=== PATIENT | female | born 1960 ===

== ENCOUNTER 2016-11-23 07:35 | Emergency (ER) | payer BC, OTHER ==
[2016-11-23] MEDS ORDERED: HYDROcodone/ACETAMIN 5-325 MG* 1 TAB PO ONE (08:06)
--- NOTE | 2016-11-23 08:54 | RAD ---
INDICATION: Right arm radiculopathy COMPARISON: None. TECHNIQUE: 5 views of the cervical spine were obtained. FINDINGS: C1-C7 are visualized. The vertebra are in normal alignment. No prevertebral soft tissue swelling or fracture is seen. Degenerative changes of the cervical spine include loss of intervertebral disc height at C5/C6 where there is mild to moderate marginal osteophyte formation. At the same levels on the oblique view images there is bony proliferation overlying the right greater than left neural foramina. IMPRESSION: Degenerative changes of the cervical spine most severely affecting C5/C6. If the patient's symptoms persist, follow-up imaging is recommended.
--- NOTE | 2016-11-23 08:55 | RAD ---
INDICATION: Atraumatic right elbow pain COMPARISON: None. TECHNIQUE: 4 views right elbow. REPORT: The visualized bones of the right elbow are well corticated and properly aligned. There is no radiographically apparent fracture or dislocation. There is no radiographic evidence of pathologic joint effusion. IMPRESSION: Normal radiograph of the right elbow. If the patient's symptoms persist further follow-up imaging is recommended.
--- NOTE | 2016-11-23 15:15 | UC ---
Moshe Serrano Alfonso, scribed for Manuela Lopez MD on 11/23/16 at 0758 . Upper Extremity HPI - HPI Summary HPI Summary: This patient is a 55 year old F presenting to [facility] with a chief complaint of right arm pain which began during sleep last night. She states the pain began in her right elbow pain, radiating up and down her right arm. The CC is described as burning. The patient rates the pain 9/10 in severity. Symptoms aggravated by movement. Symptoms alleviated by elevation of arm. Patient reports sore back (few days), weakness in right hand, and decreased ROM in right hand. Patient denies known injury, neck pain, and left arm pain. 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 She reports not taking any anti-inflammatory medication. PMHx of depression. Patients medications reviewed this visit. Patients allergies reviewed this visit. - History of Current Complaint Chief Complaint: UCUpperExtremity Stated Complaint: ARM PAIN Time Seen by Provider: 11/23/16 07:45 Hx Obtained From: Patient Hx Last Menstrual Period: does not get Onset/Duration: Sudden Onset, Lasting Hours - last night, Still Present Severity Initially: Severe Severity Currently: Severe Pain Intensity: 9 Pain Scale Used: 0-10 Numeric Location Of Pain: Is Discrete @ - right arm. Aggravating Factor(s): Movement Alleviating Factor(s): Elevation Associated Signs And Symptoms: Positive: Other - Patient reports sore back (few days), weakness in right hand, and decreased ROM in right hand. Patient denies known injury, neck pain, and left arm pain. - Allergies/Home Medications Allergies/Adverse Reactions: Allergies Allergy/AdvReac Type Severity Reaction Status Date / Time No Known Allergies Allergy Verified 11/23/16 07:47 Home Medications: Home Medications Escitalopram (NF) [Lexapro 10 mg (NF)] 11/23/16 [History] PMH/Surg Hx/FS Hx/Imm Hx Previously Healthy: Yes - see hpi Psychological History: Depression - Surgical History Surgical History: Yes Surgery Procedure, Year, and Place: breast tumor removed - Family History Known Family History: Positive: Cardiac Disease, Diabetes - Social History Alcohol Use: Daily Substance Use Type: Marijuana Smoking Status (MU): Heavy Every Day Tobacco Smoker Type: Cigarettes Amount Used/How Often: 1 ppd Review of Systems Skin: Negative Eyes: Negative ENT: Negative Respiratory: Negative Cardiovascular: Negative Gastrointestinal: Negative Genitourinary: Negative Motor: Decreased ROM Neurovascular: Other - see hpi Musculoskeletal: Arthralgia, Other: - Positive right arm pain, sore back weakness in right hand, and decreased ROM in right hand; negative known injury, neck pain, and left arm pain. Neurological: Negative Psychological: Negative All Other Systems Reviewed And Are Negative: Yes Physical Exam Triage Information Reviewed: Yes Appearance: Well-Nourished Vital Signs: Initial Vital Signs Temp 97.7 F 11/23/16 07:42 Pulse 83 11/23/16 07:42 Resp 18 11/23/16 07:42 BP 122/78 11/23/16 07:42 Pulse Ox 99 11/23/16 07:42 Vital Signs Reviewed: Yes Eye Exam: Normal ENT Exam: Normal Neck exam: Normal Neck: Positive: No Lymphadenopathy Respiratory Exam: Normal Respiratory: Positive: Other: - no dyspnea, no tachypnea, normal respiratory rate Cardiovascular: Positive: RRR, Other: - good general skin color, good capillary refill Abdomen Description: Positive: Nontender, No Organomegaly, Soft Bowel Sounds: Positive: Present Musculoskeletal Exam: Other - R elbow discomfort at radial groove. + distal sens LT and + ax N sens LT. "ok" thumb and 5th digit. CR< 2 sec x 5. R/U pp good. FROM R shoulder. From R elbow but very painful lat movement and wrist extension Neck w/o point tenderness, but mild lat spasm. Feels better with neck "hunched over" Neurological Exam: Normal Neurological: Positive: Other: - nonfocal, grossly intact Psychological: Positive: Age Appropriate Behavior Skin Exam: Normal Diagnostics - Radiology Elbow XRay Radiology Interpretation Completed By: Radiologist - Normal radiograph of the right elbow. If the patient's symptoms persist further follow-up imaging is recommended. ED physician has reviewed this radiology report and agrees. C-Spine XRay Radiology Interpretation Completed By: Radiologist - Degenerative changes of the cervical spine most severely affecting C5/C6. If the patient's symptoms persist, follow-up imaging is recommended. ED physician has reviewed this radiology report and agrees. Upper Extremity Course/Dx - Course Course Of Treatment: 08:52 - xrays pending. This patient is a 55 year old F presenting to [facility] with a chief complaint of right arm pain which began during sleep last night. She states the pain began in her right elbow pain, radiating up and down her right arm. The CC is described as burning. The patient rates the pain 9/10 in severity. Symptoms aggravated by movement. Symptoms alleviated by elevation of arm. Patient reports sore back (few days), weakness in right hand, and decreased ROM in right hand. Patient denies known injury, neck pain, and left arm pain. 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 She reports not taking any anti-inflammatory medication. PMHx of depression. Patients medications reviewed this visit. Patients allergies reviewed this visit. Feed[employer]fm reference number [id number]. Elbow X-Ray reveals Normal radiograph of the right elbow. If the patient's symptoms persist further follow-up imaging is recommended. ED physician has reviewed this radiology report and agrees. C-Spine X-Ray reveals Degenerative changes of the cervical spine most severely affecting C5/C6. If the patient's symptoms persist, follow- up imaging is recommended. ED physician has reviewed this radiology report and agrees. In the [facility] course the patient was given Snyder (Istop consulted, "Narc conversation") and a sling. Patient will be discharged with follow up from PCP. The patient is agreeable with this plan. - Differential Dx/Diagnosis Differential Diagnosis/HQI/PQRI: Fracture (Open) Provider Diagnoses: Osteoarthritis. Lat epicondylitis R arm Discharge - Discharge Plan Condition: Stable Disposition: HOME Prescriptions: HYDROcodone/ACETAMIN 5-325 MG* [Snyder 5-325 TAB*] 1 tab PO Q6H PRN #20 tab MDD 6 PRN Reason: Pain Naproxen [Naproxen 500 mg] 500 mg PO Q12H PRN #30 tab PRN Reason: Pain Patient Education Materials: Tennis Elbow (ED), Osteoarthritis (ED) Forms: *Work Release Referrals: David Gamez MD [Medical Doctor] - 3 Days Additional Instructions: Follow up with your primary care physician early next week. Seek medical attention for worse or new problems in the meantime. The documentation as recorded by the Moshe brooks Alfonso accurately reflects the service I personally performed and the decisions made by me, Manuela Lopez MD.
== END 2016-11-23 09:33 | disposition home or self-care (01) ==
LOC: UCEAST 07:35
DX: M77.11 Lateral epicondylitis, right elbow (principal); M50.322 Other cervical disc degeneration at C5-C6 level; F32.9 Major depressive disorder, single episode, unspecified; F12.90 Cannabis use, unspecified, uncomplicated; F17.210 Nicotine dependence, cigarettes, uncomplicated
CPT/HCPCS: 72050; 99203; G0463

== ENCOUNTER 2017-01-06 08:23 | Emergency (ER) | payer OTHER ==
[2017-01-06 08:30] VITALS: BP 125/80
--- NOTE | 2017-01-06 08:49 | UC ---
Throat Pain/Nasal Ky HPI - HPI Summary HPI Summary: 56 year old female presents with complains sore throat and post nasal drip. - History of Current Complaint Chief Complaint: UCRespiratory Stated Complaint: THROAT Time Seen by Provider: 01/06/17 08:33 Hx Obtained From: Patient Hx Last Menstrual Period: does not get Onset/Duration: Sudden Onset Severity: Moderate Pain Scale Used: 0-10 Numeric - 5 Cough: Nonproductive Associated Signs & Symptoms: Positive: Negative - Epiglottits Risk Factors Epiglottis Risk Factors: Negative - Allergies/Home Medications Allergies/Adverse Reactions: Allergies Allergy/AdvReac Type Severity Reaction Status Date / Time No Known Allergies Allergy Verified 01/06/17 08:26 PMH/Surg Hx/FS Hx/Imm Hx Previously Healthy: Yes - Surgical History Surgical History: Yes Surgery Procedure, Year, and Place: breast tumor removed - Family History Known Family History: Positive: Cardiac Disease, Diabetes - Social History Alcohol Use: Daily Alcohol Amount: 3 beers/day Substance Use Type: Marijuana Smoking Status (MU): Heavy Every Day Tobacco Smoker Type: Cigarettes Amount Used/How Often: 1 ppd Review of Systems Constitutional: Negative Skin: Negative Eyes: Negative ENT: Sore Throat, Nasal Discharge, Sinus Congestion Respiratory: Negative Cardiovascular: Negative Gastrointestinal: Negative Genitourinary: Negative Motor: Negative Neurovascular: Negative Musculoskeletal: Negative Neurological: Negative Psychological: Negative All Other Systems Reviewed And Are Negative: Yes Physical Exam Triage Information Reviewed: Yes Appearance: Well-Appearing Vital Signs: Initial Vital Signs Temp 36.4 C 01/06/17 08:27 Pulse 93 01/06/17 08:27 Resp 16 01/06/17 08:27 BP 125/80 01/06/17 08:27 Pulse Ox 100 01/06/17 08:27 Eye Exam: Normal ENT: Positive: Pharyngeal erythema, Nasal congestion, Nasal drainage Dental Exam: Normal Neck exam: Normal Neck: Positive: 1 Respiratory Exam: Normal Cardiovascular Exam: Normal Abdominal Exam: Normal Musculoskeletal Exam: Normal Neurological Exam: Normal Psychological Exam: Normal Skin Exam: Normal Throat Pain/Nasal Course/Dx - Differential Dx/Diagnosis Provider Diagnoses: pharyngitis Discharge - Discharge Plan Condition: Stable Disposition: HOME Prescriptions: Amoxicillin PO (*) [Amoxicillin 875 MG (*)] 875 mg PO BID #20 tab LoraTADine TAB(NF) [Claritin 10 MG TAB(NF)] 10 mg PO DAILY #30 tab Magic M W2 Alex/Maal/Nyst/Lido* 5 ml SWISH SPIT QID PRN #120 ml PRN Reason: Pain Patient Education Materials: Pharyngitis (ED) Referrals: No Primary Care Phys,NOPCP [Primary Care Provider] -
== END 2017-01-06 09:58 | disposition home or self-care (01) ==
LOC: UCEAST 08:23
DX: J02.9 Acute pharyngitis, unspecified (principal); F17.210 Nicotine dependence, cigarettes, uncomplicated
CPT/HCPCS: 87651; 99212; G0463